=== PATIENT | male | born 1995 | race African-American/Black ===

== ENCOUNTER 2021-12-10 16:15 | Emergency (ER) | payer OTHER ==
[2021-12-10 17:41] LABS: BASOPHIL 0.2 % (0-2); EOSINOPHIL 2.3 % (0-5); HGB 17.3 g/dl (13.2-18.0); LYMPHOCYTE 43.9 % (15-48); MCH 30.7 pg (25.0-31.0); MCHC 36.8 g/dL (32.0-36.0); MCV 83.5 fL (78.0-100.0); MONOCYTE 8.3 % (0-12); MPV 9.4 fL (6.0-9.5); NEUTROPHIL 45.1 % (41-80); NRBC 0; PLT 242 K/uL (150-400); RBC 5.63 M/uL (4.70-6.00); RDW 11.9 % (11.5-14.0); WBC 6.1 K/uL (4.0-10.5)
[2021-12-10 18:05] LABS: BUN/CREAT RATIO (CALC) 12.5 RATIO; CREATININE 0.88 mg/dL (0.67-1.17); POTASSIUM 3.6 mmol/L (3.5-5.1)
== END 2021-12-10 20:40 | disposition home or self-care (01) ==
LOC: FER 16:15
PROVIDERS: Nurse Practitioner Family
DX: R07.89 Other chest pain (principal); Z28.310 Unvaccinated for COVID-19
CPT/HCPCS: 36415; 71045; 80048; 84484; 85025; 93005